=== PATIENT | male | born 2000 | race Caucasian/White ===

== ENCOUNTER 2021-12-12 10:50 | Emergency (ER) | payer BC, SELFPAY ==
[2021-12-12 10:54] VITALS: BP 137/80; PULSE 96; RESP 20; TEMP 37.2; O2SAT 97; BMI 27.5
--- NOTE | 2021-12-12 11:22 | ED_ITS ---
HPI - Skin/Abscess/Foreign Bdy General Time Seen by Provider: : Date Seen: 12/12/21 Chief complaint: Skin/Abscess/Foreign Body Stated complaint: INFECTION ON FACE Time Seen by Provider: 12/12/21 10:55 History of Present Illness HPI narrative: This 21-year-old male comes in with redness, warmth, pain, and swelling on the left cheek of his face. This began yesterday and is spreading throughout most of his upper left cheek. He does not report any dental issues. He has not had symptoms like this in the past. He states that he did apply some hot or warm compresses. He does not report any fevers. Related Data Previous Rx's Medication Instructions Recorded cephalexin 500 mg capsule 500 mg PO TID #21 cap 12/12/21 Review of Systems Status of ROS: Reports: 10 or more systems reviewed and unremarkable except as noted in History and below Narrative: Constitutional: No fevers, no weight gain or loss. Eyes: No discharge. No vision changes. HENT: No congestion, no sore throat, no ear pain. Cardiovascular: No chest pain, no palpitations. Respiratory: No shortness of breath, no wheezes, no cough. Gastrointestinal: No abdominal pain, no vomiting, no diarrhea. Genitourinary: No dysuria, no hematuria. Musculoskeletal: Normal range of motion. Skin: No rashes, no pruritis. Redness and warmth in the left cheek as described above. Neurological: No dizziness, weakness, sensory change, speech change. Endo/Heme/Allergies: No bruising or bleeding. No polydipsia. Pysch: no suicidality, no anxiety, no insomnia. All other systems reviewed and are negative. PFSH PFS Social History Smoking Status: Never smoker Do you use any of these nicotine containing products: None Second hand tobacco smoke exposure: No How often do you have a drink containing alcohol: 2-3 times a week How many standard drinks containing alcohol do you have on a typical day: 3 or 4 How often do you have six or more drinks on one occasion: Weekly AUDIT-C Alcohol total score: 7 Non-prescribed substance use: denies use service: No Exam Narrative: Exam Narrative: Constitutional: Well-developed, well-nourished, no acute distress. HEENT: Normocephalic, atraumatic. Neck: Normal range of motion. Nontender. Supple. Heart: Regular. No murmurs. Normal rate. Intact distal pulses. Lungs: Clear to auscultation. No chest discomfort. No wheezes, rhonchi, or rales. Abdomen: Normal bowel sounds. Nontender. No rebound tenderness. Genitalia: Deferred. Back: No midline tenderness. Normal range of motion. Extremities: Normal range of motion. No injury. Skin: Intact. Erythema typical of cellulitis on the left cheek. There is no obvious palpable abscess. There is a small point in the center of the erythema that may at some point allow drainage. Neurologic: No altered sensation. No weakness. Alert and oriented. Psychiatric: No suicidality. No anxiety or depression. No insomnia. Nursing notes and vitals signs are reviewed. Const: Vital Signs, click to edit/add: Vital Signs - 24 hr 12/12/21 10:54 Temperature 98.9 F Pulse Rate [Pulse Oximeter] 96 Respiratory Rate 20 Blood Pressure [Le ft Upper Arm] 137/80 Pulse Oximetry 97 Course Vital Signs Vital signs: Initial Vital Signs Temperature 98.9 F 12/12/21 10:54 Temperature Source Temporal Artery Scan 12/12/21 10:54 Pulse Rate 96 12/12/21 10:54 Pulse Rhythm 12/12/21 10:54 Respiratory Rate 20 12/12/21 10:54 Blood Pressure 137/80 12/12/21 10:54 Blood Pressure Mean 99 12/12/21 10:54 Blood Pressure Position Sitting 12/12/21 10:54 Pulse Oximetry 97 12/12/21 10:54 Oxygen Delivery Method 12/12/21 10:54 Vital Signs Temperature 98.9 F 12/12/21 10:54 Pulse Rate 96 12/12/21 10:54 Respiratory Rate 20 12/12/21 10:54 Blood Pressure 137/80 12/12/21 10:54 Pulse Oximetry 97 12/12/21 10:54 Temperature 98.9 F 12/12/21 10:54 Pulse Rate 96 12/12/21 10:54 Respiratory Rate 20 12/12/21 10:54 Blood Pressure 137/80 12/12/21 10:54 Pulse Oximetry 97 12/12/21 10:54 MDM - Skin/Abscess/Foreign Bdy MDM Narrative Medical decision making narrative: This patient has symptoms typical of a cellulitis of the left cheek. I did use bedside ultrasound to evaluate for the presence of abscess. There was no abscess observed in this process. The patient received a prescription for Keflex. I did alert him to signs and symptoms that would indicate a need for return and re-evaluation. Discharge Plan Discharge Clinical Impression: Cellulitis Patient Disposition: Home, Self-Care Condition: Stable Instructions: Cellulitis (ED), Warm Compress or Soak (ED) Additional Instructions: Cellulitis of the left cheek. Take medication as prescribed. Follow up with MD or return if worsening symptoms happen. Prescriptions: New cephalexin 500 mg capsule 500 mg PO TID Qty: 21 0RF Stand Alone Forms: [employer] Info Instructions
== END 2021-12-12 11:41 | disposition home or self-care (01) ==
LOC: ED 11:33
PROVIDERS: Emergency Provider Emergency Medicine Emergency Medical Services
DX: L03.211 Cellulitis of face (principal)
CPT/HCPCS: 99282; 99284